=== PATIENT | male | born 1950 | race Caucasian/White ===

== ENCOUNTER 2020-02-19 12:14 | Outpatient (CLI) | payer MEDICARE, SELFPAY ==
--- NOTE | ~2020-02-19 | MR_ITS ---
EXAMINATION: MR lumbar spine wo [facility] EXAM DATE: 02/19/2020 13:14 INDICATION: Lumbar stenosis, back pain. TECHNIQUE: Multi-sequential, multiplanar MR images of the lumbar spine were obtained without contrast . Sagittal T1, T2, T2 fat saturation images. Axial T2 weighted images. Comparison is made to prior examination from 06/08/2017. FINDINGS: There is moderate thoracolumbar levoscoliosis. Mild loss of the L3 and L4 vertebral body he ights. There is moderate to severe disc disease L3-4, moderate at L2-3 and L4-5, mild to moderate at L1-2. L5-S1 has a rudimentary disc. There is no spondylolysis. There is 2-3 mm retrolisthesis L3 on L 4. The conus medullaris terminates at the T12 level and has normal signal intensity and morphology. There are no suspicious marrow signal abnormalities. Paraspinal soft tissue is unremarkable. Level by level evaluation: T12-L1: There is a mild diffuse disc bulge. Facet arthropathy: Mild. Neural foraminal stenosis: No stenosis. Central canal stenosis: No stenosis. L1-L2: There is a mild to moderate diffuse disc bulge. Facet arthropathy: Mild. Neural foraminal stenosis: Mild to moderate right, mild left. Central canal stenosis: Mild. L2-L3: There is a moderate diffuse disc bulge. Facet arthropathy: Mild to moderate. Neural foraminal stenosis: Moderate right, mild left. Central canal stenosis: Mild to moderate. L3-L4: There is a moderate diffuse disc bulge. Facet arthropathy: Mild to moderate bilateral. Neural foraminal stenosis: Moderate bilateral. Central canal stenosis: Mild to moderate. L4-L5: There is a mild to moderate diffuse disc bulge. Facet arthropathy: Mild to moderate left, mild right. Neural foraminal stenosis: Moderate to severe left, moderate right. Central canal stenosis: Mild. L5-S1: Rudimentary disc. Facet arthropathy: Mild. Neural foraminal stenosis: No stenosis. Central canal stenosis: No stenosis. Only mild interval progression compared to previous examination. IMPRESSION: 1. Moderate thoracolumbar levoscoliosis. 2. Advanced lumbar spondylosis with mild interval progression compared to 2017. Reviewed, dictated and finalized at location G. IMPRESSION: 1. Moderate thoracolumbar levoscoliosis. 2. Advanced lumbar spondylosis with mild interval progression compared to 2017 .
== END 2020-02-19 12:15 | disposition home or self-care (01) ==
LOC: ANHIMG 12:15
PROVIDERS: PCP Family Medicine; Visit Provider Physical Medicine & Rehabilitation Pain Medicine
DX: M48.061 Spinal stenosis, lumbar region without neurogenic claudication (principal); M41.85 Other forms of scoliosis, thoracolumbar region; M47.816 Spondylosis without myelopathy or radiculopathy, lumbar region
CPT/HCPCS: 72148

== ENCOUNTER 2021-02-07 12:18 | Outpatient (CLI) | payer MEDICARE, SELFPAY ==
--- NOTE | ~2021-02-07 | MR_ITS ---
EXAMINATION: MR shoulder RT wo con DATE: 02/07/2021 13:35 INDICATION: Right shoulder pain. TECHNIQUE: Magnetic resonance imaging (MRI) of the right shoulder was performed without intravenous c ontrast. Sequences included axial PD-weighted FS FSE, coronal oblique PD-weighted FS FSE, coronal obl ique T2-weighted FS FSE, sagittal PD-weighted FS FSE, and sagittal T1-weighted SE. COMPARISON: 06/08/2007 FINDINGS: Coracoacromial arch: The acromion undersurface is curved in morphology (type II). The coracoacromial ligament is normal. M oderate acromioclavicular osteoarthritis. Rotator cuff: Mild supraspinatus and infraspinatus tendinopathy with moderate tendinopathy of the intervening conjo ined portion of the tendons. Again seen is a full-thickness tear of the distal supraspinatus tendon w hich measures approximately 1 cm AP and 2 cm medial to lateral. Significantly larger articular sided supraspinatus tear defect which involves approximately half of the tendon thickness and the entire AP width of the tendon. The torn articular sided tear margin is retracted approximately 4 cm from the g reater tuberosity footplate. The articular sided portion of the tear includes a portion of the tendon extending into the conjoined portion of the tendon. Moderate subscapularis tendinopathy in mild kelley s minor tendinopathy without discrete tear. Unchanged mild fatty atrophy of the supraspinatus, infras pinatus and teres minor muscle bellies. Biceps tendon, glenoid labrum and glenohumeral cartilage: Complete avulsion of the intra-articular long head biceps tendon. The attenuated distally retracted t ear margin is seen at the intertubercular groove. There is extensive tearing of the glenoid labrum be ginning at the 12:00 position and extending around the posterior and inferior glenoid to the 5:00 pos ition anteroinferiorly. There is partial thickness cartilage loss with relatively smooth chondral zulma face at the cephalad third of the glenoid. There is thickening and fibrillation of the articular cart ilage at the inferior third of the glenoid. Additional partial thickness cartilage loss with chondral surface irregularity along the cephalad aspect of the humeral head. Fluid: Small to moderate-sized glenohumeral joint effusion which extends through the full-thickness rotator cuff tear into the subacromial/subdeltoid bursa. No loose osteochondral bodies. Bones: Minimal cephalad subluxation of the humeral head with respect to the glenoid with mild narrowing of t he subacromial space with 2-3 mm separation of the cartilage at the apex of the humeral head and the undersurface of the acromion. No fracture or pathologic marrow replacing process. IMPRESSION: 1. No significant change in a moderate-sized moderate severity articular sided tear involving the ent keny supraspinatus tendon and conjoined portion of the supraspinatus and infraspinatus tendons with sm aller full-thickness tear defect of the lateral supraspinatus tendon. 2. Mild glenohumeral osteoarthritis with extensive tearing of the superior, posterior and inferior gl enoid labrum. 3. Full-thickness avulsion and distal retraction of the intra-articular long head biceps tendon. 4. Moderate acromioclavicular osteoarthritis. 5. Likely reactive small to moderate-sized right glenohumeral joint effusion which extends into the s ubacromial/subdeltoid bursa through the full-thickness rotator cuff tear defect. Reviewed, dictated and finalized at location B. IMPRESSION: 1. No significant change in a moderate-sized moderate severity articular sided tear involving the entire supraspinatus tendon and conjoined portion of the sup raspinatus and infraspinatus tendons with smaller full-thickness tear defect of the lateral supraspinatus tendon.
== END 2021-02-07 12:19 | disposition home or self-care (01) ==
PROVIDERS: PCP Family Medicine; Visit Provider Physical Medicine & Rehabilitation Pain Medicine
DX: M19.011 Primary osteoarthritis, right shoulder (principal)
CPT/HCPCS: 73221

== ENCOUNTER 2021-04-29 15:39 | Outpatient (CLI) | payer MEDICARE, SELFPAY ==
--- NOTE | ~2021-04-29 | XR_ITS ---
EXAMINATION: XR cervical spine 4-5V DATE: 04/29/2021 16:02 INDICATION: Neck pain. TECHNIQUE: 4 views of cervical spine were obtained. COMPARISON: None. FINDINGS: There is 2 mm retrolisthesis of C5 on C6 and C6 on C7 and 2 mm anterolisthesis of C7 on T1. Vertebral body heights are normal. There is severely decreased disc height at C5-C6 and C6-C7. There is severe bilateral uncovertebral joint osteoarthritis at C5-C6 and C6-C7. There is multilevel mild facet joint osteoarthritis. There is mild central canal stenosis at C5-C6 and C6-C7. No prevertebral soft tissue swelling. IMPRESSION: 1. Severe cervical spondylosis. Reviewed, dictated and finalized at location A.
== END 2021-04-29 15:40 | disposition home or self-care (01) ==
LOC: ANHIMG 15:43
PROVIDERS: PCP Family Medicine; Visit Provider Physician Assistant
DX: M47.892 Other spondylosis, cervical region (principal)
CPT/HCPCS: 72050

== ENCOUNTER 2021-05-08 10:13 | Outpatient (CLI) | payer MEDICARE, SELFPAY ==
--- NOTE | ~2021-05-08 | MR_ITS ---
EXAMINATION: MR cervical spine wo con DATE: 05/08/2021 11:21 INDICATION: Cervical spondylosis. TECHNIQUE: Magnetic resonance imaging (MRI) of the cervical spine was performed without intravenous c ontrast. Sequences included sagittal T2-weighted FSE, sagittal STIR FSE, sagittal T1-weighted FSE, ax ial MERGE, and axial T2-weighted FSE. COMPARISON: Cervical spine radiographs 04/29/2021 FINDINGS: There is 2 mm retrolisthesis of C5 on C6 and C6 on C7. Vertebral body heights are normal. T here is severely decreased disc height at C5-C6 and C6-C7. The spinal cord signal intensity is normal . The following disc levels are specifically discussed: C2-C3: The disc does not extend beyond the endplate margin. There is no uncovertebral joint osteoarth ritis. There is severe right and mild left facet joint osteoarthritis. There is mild right neural for aminal stenosis. There is no central canal stenosis. C3-C4: There is a central protrusion. There is no uncovertebral joint osteoarthritis. There is severe bilateral facet joint osteoarthritis. There is mild right neural foraminal stenosis. There is mild c entral canal stenosis. C4-C5: There is a left central extrusion. There is no uncovertebral joint osteoarthritis. There is mi ld right and severe left facet joint osteoarthritis. There is mild left neural foraminal stenosis. Th ere is mild central canal stenosis with ventral indentation of the spinal cord. C5-C6: The disc is bulging. There is severe bilateral uncovertebral joint osteoarthritis. There is mi ld right and moderate left facet joint osteoarthritis. There is mild bilateral neural foraminal steno sis. There is mild central canal stenosis with ventral indentation of the spinal cord. C6-C7: The disc is bulging. There is severe bilateral uncovertebral joint osteoarthritis. There is mi ld left facet joint osteoarthritis. There is moderate right and mild left neural foraminal stenosis. There is mild central canal stenosis. C7-T1: There is a left central extrusion. There is no uncovertebral joint osteoarthritis. There is se eugene bilateral facet joint osteoarthritis. There is mild bilateral neural foraminal stenosis. There i s mild central canal stenosis. IMPRESSION: 1. Severe cervical spondylosis. Reviewed, dictated and finalized at location A.
== END 2021-05-08 10:14 | disposition home or self-care (01) ==
PROVIDERS: PCP Family Medicine; Visit Provider Family Medicine
DX: M47.892 Other spondylosis, cervical region (principal)
CPT/HCPCS: 72141

== ENCOUNTER 2022-02-05 13:09 | Outpatient (CLI) | payer MEDICARE, SELFPAY ==
--- NOTE | ~2022-02-05 | PE_ITS ---
EXAMINATION: PET skull to mid thigh DATE: 02/05/2022 15:54 INDICATION: Carcinoma of gallbladder TECHNIQUE: Blood glucose level was 223 mg/dL. 9.686 mCi of 18-fluorodeoxyglucose (18-FDG) was adminis tered i.v. Low dose computed tomography (CT) images were acquired from the base of the brain to the p roximal thighs for attenuation correction and anatomic localization. Positron emission tomography (PE T) images were acquired in the same distribution beginning 64 minutes after injection. Images includi ng fused PET/CT images were reconstructed in axial, coronal, and sagittal planes. Automated exposure control technique was employed. The dose-length product was 336.74mGy-cm. COMPARISON: CT abdomen and pelvis dated 06/08/2017 FINDINGS: Head/neck: There is asymmetric increased uptake at the left mandible centered in the region of the roots of the second premolar likely related to dental disease with suggestion of subtle periapical lucency on the CT images. There is otherwise symmetric increased activity in the oral cavity, laryngeal muscles and ocular muscles without CT correlate, likely physiologic. No pathologically enlarged cervical lymphade nopathy or suspicious foci of increased FDG uptake in the visualized head or neck. Chest: Mild emphysema. Interval increase in size of a now 3.2 x 2.9 cm relatively low density nodule at the posterior right lower lobe which previously measured 2.5 x 1.8 cm which is without significant FDG up take with maximal SUV of 1.3 which is less than the activity in the blood pool. 2.5 x 1.7 cm sub brooke d nodule in the more posterior right lower lobe which is without discernible FDG activity. 7 x 5 mm p leural-based nodule more inferiorly at the posterior sulcus of the right lower lobe also without disc ernible FDG uptake. No pulmonary edema or pleural effusion. Heart size is normal. Atherosclerotic cor onary artery calcification. No pericardial effusion. No pathologically enlarged or FDG avid thoracic lymphadenopathy. Abdomen/pelvis/proximal thighs: Physiologic renal accumulation and excretion of FDG activity in the kidneys, bladder and along portio ns of ureters. Normal degree and heterogenous pattern of increased uptake throughout the liver withou t radiologic correlate or dominant FDG avid lesion. Surgical clips and small amount of gas and fluid at the gallbladder fossa likely representing postoperative change related to reported recent cholecys tectomy. The gallbladder, pancreas, spleen and bilateral adrenal glands are normal. Mild to moderate uptake scattered throughout the bowels without radiologic correlate, also likely physiologic. Normal appendix. No other abnormal foci of increased FDG uptake or pathologically enlarged lymphadenopathy i n the abdomen, pelvis or proximal thighs. Musculoskeletal: There is increased FDG uptake extending along the left teres minor and infraspinatus tendons without radiologic correlate which is likely physiologic. Mild lumbar levoscoliosis with severe spondylosis. Mild thoracic and moderate lower cervical spondylosis. 2.9 x 1.5 x 1.1 cm sclerotic lesion in the sub trochanteric left femur with ring and arc-like configuration of the sclerosis consistent with chondro id matrix in the setting of an enchondroma. There is no abnormal associated FDG uptake. No other susp icious lytic, blastic or FDG avid bone lesions. IMPRESSION: 1. Interval increase in size of a now 2.2 x 2.9 cm right lower lobe nodule with relatively low densit y and lobular margins which is been present since at least 2011. The chronicity, appearance and absen ce of significant FDG activity suggestive benign etiology such as a hamartoma. Correlate with patholo gy from prior biopsy performed 06/14/2017. 2. New 2.5 x 1.7 cm subtle solid nodule in the right lower lobe without FDG uptake. While reassuring slowly growing bronchoalveolar carcinoma could have a similar appearance and
[2022-02-05 14:14] LABS: Glucose Point of Care 223 mg/dl (65-105)
== END 2022-02-05 13:10 | disposition home or self-care (01) ==
LOC: ANHIMG 13:11
PROVIDERS: PCP Family Medicine; Visit Provider Internal Medicine Hematology & Oncology
DX: C24.9 Malignant neoplasm of biliary tract, unspecified (principal); C23 Malignant neoplasm of gallbladder; J43.9 Emphysema, unspecified
CPT/HCPCS: 78815; A9552

== ENCOUNTER 2022-02-06 14:59 | Outpatient (CLI) | payer MEDICARE, SELFPAY ==
--- NOTE | ~2022-02-06 | MR_ITS ---
EXAMINATION: MR MRCP wo/w con/w 3D wo ind DATE: 02/06/2022 17:14 INDICATION: Adenocarcinoma of the gallbladder TECHNIQUE: Magnetic resonance imaging (MRI) of the abdomen was performed without and with 14 mL Multi wilman intravenous contrast. Sequences included coronal T2-weighted SS-FSE, coronal T2-weighted FS SS- FSE, coronal T2-weighted FS FIESTA, axial T2-weighted FS FIESTA, axial T2-weighted FIESTA, sagittal T 2-weighted SS-FSE, axial T1-weighted dual-echo FSPGR, axial T2-weighted SS-FSE, axial T1-weighted LAV A, axial T2-weighted STIR FSE. Thick-slab T2-weighted FRFSE-XL images were obtained for magnetic reso nance cholangiopancreatography (MRCP). Rotating maximum intensity projection 3-D reconstructions of t he volumetric data were created by the technologist. Postcontrast sequences included a time course of axial T1-weighted LAVA. COMPARISON: PET/CT dated 02/05/2022 FINDINGS: ABDOMEN MRI: Heart size is normal. No pericardial or pleural effusion. 3.2 x 2.9 cm T2 hyperintense n odule without definitive enhancement along the biceps the right hepatic lobe. Air bronchograms extend through an additional 2.5 x 1.5 cm T2 hyperintense nodule in the more posterior right lower lobe als o without discernible enhancement. Metallic magnetic field artifact associated with cholecystectomy c lips the gallbladder fossa where there is heterogeneous increased T1 signal without evident enhanceme nt consistent with either blood or proteinaceous fluid likely residual postoperative change related t o recent cholecystectomy. Liver, spleen and bilateral adrenal glands are normal. There are multiple b ilateral nonenhancing renal cysts, the majority simple with T2 hyperintensity and one at the upper po le of the right kidney measuring 6 mm with increased T1 and decreased T2 signal consistent with a pro teinaceous/hemorrhagic cyst. There is dilation of the main pancreatic duct at the tail of the pancrea s along with several cystic lesions which appear to indicate with the main pancreatic duct, the large st measuring 4.0 x 2.5 cm and a smaller measuring 2.0 x 1.5 cm. No evident enhancing solid soft tissu e component. Tiny punctate dystrophic calcifications are seen at the tail of the pancreas on earlier CT of the abdomen and pelvis dated 09/06/2012 further suggesting the ductal dilation and cystic lesion s represent sequela of chronic pancreatitis with pseudocyst formation. Visualized portion of the vielka ls are unremarkable. No pathologically enlarged abdominal lymphadenopathy. Mild lumbar levoscoliosis with severe spondylosis. ABDOMEN MRCP: No intrahepatic biliary ductal dilation. The common hepatic duct measures up to 5 mm diameter taperin g to 2-3 mm in the common hepatic duct. The main pancreatic duct is normal in caliber at the head of the pancreas with dilation of the body and tail as previously detailed. IMPRESSION: 1. Small amount of nonenhancing T1 hyperintense material at the gallbladder fossa likely small amount of hemorrhage/clot related to recent cholecystectomy. 2. 3.2 cm and 2.5 cm right lower lobe nodules without discernible enhancement and without increased F DG uptake on prior PET study. The former nodule is biopsied on 06/14/2017 and would correlate with kristy erickson from this biopsy. As noted on PET CT report would recommend 3 month follow-up of the smaller n ew more posterior right lower lobe nodule. 3. Ductal dilation of the main pancreatic duct at the body and tail the pancreas with a few simple ap pearing cystic lesions without enhancing soft tissue components most likely pancreatic pseudocysts re lated to chronic pancreatitis. Correlate for prior pancreatitis. Reviewed, dictated and finalized at location B.
[2022-02-06 16:15] LABS: Estimated Glomerular Filt Rate 55
== END 2022-02-06 15:00 | disposition home or self-care (01) ==
PROVIDERS: PCP Family Medicine
DX: C23 Malignant neoplasm of gallbladder (principal)
CPT/HCPCS: 74183; 76376; A9577

== ENCOUNTER 2022-04-30 09:40 | Emergency (ER) | payer MEDICARE, SELFPAY ==
[2022-04-30] VITALS (12 sets, daily range): BP systolic 144–187; BP diastolic 79–99; PULSE 61–75; RESP 13–20; TEMP 36.7; O2SAT 90–100
--- NOTE | ~2022-04-30 | CT_ITS ---
EXAMINATION: CT abdomen pelvis w con DATE: 04/30/2022 11:35 INDICATION: Generalized abdominal pain, greatest in the epigastric area. TECHNIQUE: Computed tomography (CT) of the abdomen and pelvis was performed with 100 CC Omnipaque 300 intravenous contrast. Automated exposure control and iterative reconstruction technique were employe d. Exam dose: 361.74 mGy-cm total exam DLP. COMPARISON: 02/06/2022 MR/MRCP 02/05/2022 PET/CT scan 09/06/2012 CT abdomen pelvis FINDINGS: An up to 3.3 cm anterolateral right basilar low-attenuation mass with some peripheral calci fications. Irregular approximately 3 cm posterolateral right lower lobe mass. There is an adjacent 12 mm irregul ar soft tissue mass at the posterolateral right lung base abutting the diaphragm pleura. Approximatel y 6 mm peripheral pleural-based nodule (series 4 image 2). Irregular approximately 3.5 x 7.5 mm opacity at the posterior left lung base (series 4 image 24).. Normal heart size. No pericardial or pleural effusion. Small sliding hiatal hernia. Mild ascites. Surgical clips in the gallbladder fossa. There is mild fluid accumulation in the gallbladder fossa, p ossibly postoperative hematoma or seroma or bile collection. At least several pancreatic cystic areas are noted, largest measuring up to approximately 17.8 x 36.1 mm, previously attributed to probable pancreatic pseudocysts on 02/06/2022 MR examination. No adrenal mass lesion. 5 mm calcification at the upper pole of the left kidney mid left renal approximately 3.8 mm calcifica tion. Some renal artery calcifications are noted bilaterally. No ureteral calculus or hydroureteronep hrosis or significant abnormality of the urinary bladder is noted. There is extensive calcification of the abdominal aorta, prominent calcification at the origins of th e celiac and superior mesenteric and renal arteries and prominent calcification of the iliac and femo ral arteries. No abdominal aortic aneurysm. No intraperitoneal or retroperitoneal or pelvic mass lesi on or adenopathy or ascites is noted. Degenerative changes of the thoracic and lumbar spine including particular severe degenerative disc d isease at L3-4 and moderately severe degenerative disc disease at L1-2, L2-3 and L4-5, moderate degen erative disease at L5-S1. No suspicious osteolytic or osteoblastic lesions. There is very prominent distention of the stomach with fluid and foodstuff and some opaque opacities, possibly antacid tablets or medication. There is fluid containing nondilated small bowel. Mild colonic diverticulosis. There is a prominent amount of fecal material throughout most of the col on. No bowel obstruction, bowel wall thickening, pneumatosis or intraperitoneal free air is detected. Levoscoliosis of the lumbar spine. There is degenerative change of the lower thoracic spine in partic ular the lumbar spine including abdominal degenerative disc disease, most severe at L3-4, also quite prominent at L1-2, L2-3 and L4-5. No suspicious osteolytic or osteoblastic lesions are noted. IMPRESSION: Interval enlargement of posterior lateral right lower lobe mass since 02/05/2022. CT-guide d percutaneous needle biopsy should be considered Stable hypoattenuating 3 cm anterolateral right lower lobe mass with calcifications Small sliding hiatal hernia Mild ascites Status post cholecystectomy, with possible mild gallbladder fossa hematoma, seroma or bile collection Very prominent gastric distention Reviewed, dictated and finalized at [facility]. Reviewed, dictated and finalized at [facility]. IMPRESSION: Interval enlargement of posterior lateral right lower lobe mass si nce 02/05/2022. CT-guided percutaneous needle biopsy should be considered Stable hypoattenuating 3 cm
[2022-04-30 09:49] LABS: Glucose Point of Care 232 mg/dl (65-105)
--- NOTE | 2022-04-30 10:24 | ECG_ITS ---
Measurements Intervals [place] Rate: 60 P: 74 ND: 177 QRS: -18 QRSD: 81 T: 3 QT: 418 QTc: 420 Interpretive Statements SINUS RHYTHM LOW VOLTAGE EKG NO PREVIOUS ECG AVAILABLE FOR COMPARISON Electronically Signed On 04-30-2022 18:04:31 CDT by Estephanie Garg M.D.
[2022-04-30 10:42] LABS: Add Urine Microscopic? YES; Appearance Urine Clear (Clear); Bilirubin Urine Negative (Negative); Blood Urine Negative (Negative); Color Urine Yellow (Yellow); Glucose Urine UA 3+ mg/dL (Negative); Ketones Urine Negative (Negative); Leukocyte Esterase Ur Negative LEU/UL (Negative); Nitrate Urine Negative (Negative); Protein Urine 2+ mg/dL (Negative); Urobilinogen Urine 0.2 mg/dL (<2.0); pH Urine 8.5 (5.0-9.0)
[2022-04-30 10:44] LABS: Bacteria Urine Trace /hpf; Mucus Urine Rare /lpf; RBC Urine 0-2 /hpf (0-2); Squamous Epithelial Cell Urine Rare /hpf (Few); WBC Urine 0-3 /hpf
[2022-04-30] MEDS: LACTATED RINGERS 1,000 ML 999 ML IV CONT (10:48)
[2022-04-30] MEDS: MAG HYDROX/AL HYDROX/SIMETH 30 ML UDC PO (10:50)
[2022-04-30] MEDS: LIDOCAINE HCL 2% VISC SOLN 15 ML UDC 20 ML PO (10:50)
[2022-04-30 10:52] LABS: Basophils Absolute Auto 0.1 K/mm3 (0.0-0.1); Basophils Percent Auto 0.7 % (0.2-1.2); Eosinophils Absolute Auto 0.1 K/mm3 (0-0.3); Eosinophils Percent Auto 0.9 % (0-4.4); Hematocrit 28.5 % (42.0-52.0); Hemoglobin 9.4 g/dL (14.0-18.0); Immature Granulocyte Absolute 0.07 K/mm3 (0.00-0.031); Immature Granulocyte Percent A 0.8 % (0-0.5); Lymphocytes Absolute Auto 2.17 K/mm3 (0.9-3.2); Lymphocytes Percent Auto 23.7 % (18.3-44.2); Mean Corpuscular Hemoglobin 30.2 pg (26-34); Mean Corpuscular Volume 91.6 fl (80-100); Mean Platelet Volume 8.8 fl (7.4-10.4); Monocytes Percent Auto 11.4 % (2.6-8.5); Neutrophils Absolute Auto 5.7 K/mm3 (1.3-6.7); Neutrophils Percent Auto 62.5 % (45.5-73.1); Platelet Count Result 395 k/mm3 (150-375); Red Blood Count 3.11 M/mm3 (4.6-6.20); Red Cell Distribution Width 15.9 % (11.5-14.5); White Blood Count 9.1 K/mm3 (4.5-10.0)
[2022-04-30 11:06] LABS: Alanine Aminotransferase 22 U/L (6-50); Albumin Level 3.7 g/dL (3.5-5.1); Alkaline Phosphatase 62 U/L (38-126); Anion Gap 7 mmol/L (8-16); Aspartate Amino Transferase 23 U/L (17-59); Bilirubin,Total 0.1 mg/dL (0.2-1.3); Blood Urea Nitrogen 30 mg/dL (9-20); Calcium 8.3 mg/dL (8.4-10.2); Carbon Dioxide 23 mmol/L (22-30); Chloride 101 mmol/L (98-107); Estimated CRCL calculation 44 ml/min; Estimated Glomerular Filt Rate 50; Glucose 281 mg/dL (65-110); Potassium 4.8 mmol/L (3.4-5.0); Sodium 131 mmol/L (137-145)
--- NOTE | 2022-04-30 11:12 | PC.NURSE ---
patient report given to GAUDENCIO Sadler. All questions answered and care of patient transferred.
[2022-04-30 11:20] LABS: Lipase < 10 U/L (23-300); Troponin I < 0.012 ng/mL (0.000-0.034)
--- NOTE | 2022-04-30 12:55 | ED.GENADULT ---
HPI - General Adult General Chief complaint: Unspecified Stated complaint: lots of complaints Time Seen by Provider: 04/30/22 10:18 Source: patient History of Present Illness HPI narrative: Patient presents with multiple complaints. 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 He is coming in today with multiple complaints of generally not feeling well reflux low blood sugar and weakness. Patient reports diffuse abdominal pain primarily in his epigastric area that radiates up into his chest. He is attempted arwv-isc-rpmenld medications without relief of his symptoms so he came to the ER for further evaluation. This pain is achy, constant, no clear aggravating or alleviating factors. Denies any shortness of breath fevers, cough, congestion. Related Data Home Medications Medication Instructions Recorded Confirmed atenolol 50 mg tablet 50 mg PO DAILY 08/20/20 04/09/22 cholecalciferol (vitamin D3) 125 125 mcg PO DAILY 08/20/20 04/09/22 mcg (5,000 unit) tablet (Vitamin D3) ondansetron 4 mg disintegrating 4 mg PO Q6H 08/20/20 04/08/22 tablet atorvastatin 10 mg tablet 10 mg PO DAILY 02/17/21 04/09/22 insulin aspart U-100 100 unit/mL 10 unit subcut TID 02/17/21 04/09/22 (3 mL) subcutaneous pen (Novolog Flexpen U-100 Insulin aspart) insulin degludec 100 unit/mL (3 10 unit subcut DAILY 02/17/21 04/09/22 mL) subcutaneous pen (Tresiba FlexTouch U-100 insulin) alprazolam 0.5 mg tablet 0.5 mg PO HS PRN Anxiety 04/09/22 04/09/22 lisinopril 20 mg tablet 20 mg PO DAILY 04/09/22 04/09/22 ondansetron 4 mg disintegrating 4 mg PO Q8H PRN nausea 04/09/22 04/09/22 tablet chlorpromazine 25 mg tablet 50 mg PO TID 04/16/22 04/16/22 Allergies Allergy/AdvReac Type Severity Reaction Status Date / Time No Known Allergies Allergy Unknown N/A Verified 04/09/22 08:34 Review of Systems Review of Systems: CONSTITUTIONAL: Denies fever, chills, or sweats. EYES: Denies visual changes, redness, or discharge. ENT: Denies rhinorrhea, congestion, sore throat, or otalgia. CARDIOVASCULAR: Denies chest pain, palpitations, or edema. RESPIRATORY: Denies cough or dyspnea. GASTROINTESTINAL: Abdominal pain GENITOURINARY: Denies dysuria or hematuria. SKIN: Denies rash or itching. MUSCULOSKELETAL: Denies back pain, joint pain, or myalgia. NEUROLOGIC: Denies headache, numbness, dizziness, or weakness. PSYCHIATRIC: Denies anxiety or depression. All systems reviewed & are unremarkable except as noted in HPI and below PMFSH Past Medical History Medical History Complete tear of right rotator cuff Diabetes History of prostate cancer History of testicular cancer Hypertension Spinal cord stimulator status (~08/2015) Surgical History Surgical History History of prostatectomy (~10/2012) History of surgical removal of testicle (~01/1981) Family History Family History Sibling Diabetes mellitus Father Family history of malignant neoplasm Social History Social History Smoking status: Former smoker Smoking end date: 08/20/20 Alcohol intake: current Gender identity (if verbalized by the patient): Male Exam Narrative: GENERAL: Well-appearing, well-nourished, and in no acute distress. HEAD: Normocephalic, atraumatic. EYES: PERRLA and EOMI. ENT: Nares clear, no rhinorrhea or epistaxis. Mucous membranes moist. NECK: Supple. No masses. No JVD CHEST: Clear to auscultation. No respiratory distress. No wheezes rales or rhonchi HEART: Regular rate and rhythm. No murmur heard. Normal peripheral pulses. ABDOMEN: Mild diffuse abdominal pain mostly in the epigastric area no rebound or guarding soft, nondistended EXTREMITIES: Normal range of motion. No edema. SKIN: Warm, dry, no rash. NEURO: No foc
[2022-04-30] MEDS: HEPARIN SODIUM LOCK FLUSH 500 UNITS/5 ML VIAL IV PUSH (13:43)
== END 2022-04-30 13:54 | disposition home or self-care (01) ==
PROVIDERS: Emergency Provider Emergency Medicine; PCP Family Medicine
DX: R10.84 Generalized abdominal pain (principal); C23 Malignant neoplasm of gallbladder; C79.9 Secondary malignant neoplasm of unspecified site; E11.9 Type 2 diabetes mellitus without complications; I10 Essential (primary) hypertension; Z96.82 Presence of neurostimulator; Z79.4 Long term (current) use of insulin; Z90.79 Acquired absence of other genital organ(s); Z87.891 Personal history of nicotine dependence; K44.9 Diaphragmatic hernia without obstruction or gangrene; R18.8 Other ascites; R91.8 Other nonspecific abnormal finding of lung field; Z85.46 Personal history of malignant neoplasm of prostate; Z85.47 Personal history of malignant neoplasm of testis
CPT/HCPCS: 36415; 74177; 80047; 80053; 81001; 82948; 83690; 83735; 84484; 85025; 93005; 96361; 96372; 96374; 99284; A9270; J1642; J7120; Q5106; Q9967

== ENCOUNTER 2022-05-14 09:03 | Outpatient (CLI) | payer MEDICARE, SELFPAY ==
[2022-05-14 15:28] LABS: Phosphorus 3.2 mg/dL (2.5-4.5)
[2022-05-14 15:40] LABS: Parathyroid Intact 56.6 pg/mL (7.5-53.5)
[2022-05-14 15:43] LABS: Vitamin D 25 Hydroxy 54.9 ng/mL
== END 2022-05-14 09:04 | disposition home or self-care (01) ==
LOC: ANHLAB 09:05
PROVIDERS: Internal Medicine Nephrology; PCP Family Medicine; Visit Provider Family Medicine
DX: I12.9 Hypertensive chronic kidney disease with stage 1 through stage 4 chronic kidney disease, or unspecified chronic kidney disease (principal); N18.32 Chronic kidney disease, stage 3b; E11.29 Type 2 diabetes mellitus with other diabetic kidney complication
CPT/HCPCS: 36415; 82306; 83970; 84100

== ENCOUNTER 2022-06-03 07:02 | Outpatient (RCR) | payer MEDICARE, SELFPAY ==
[2022-06-03] VITALS (9 sets, daily range): BP systolic 110–153; BP diastolic 66–83; PULSE 49–59; RESP 16; TEMP 36.5–37.1; O2SAT 98–99
[2022-06-03] MEDS: diphenhydrAMINE HCl CAP 25 MG CAPSULE PO (09:05)
[2022-06-03] MEDS: ACETAMINOPHEN 325 MG TABLET 650 MG PO (09:05)
[2022-06-03] MEDS: SODIUM CHLORIDE 0.9% IV 250 ML 30 ML IV CONT (09:05)
[2022-06-03] MEDS: FUROSEMIDE INJ 40 MG/4 ML VIAL 20 MG IV PUSH (11:58)
[2022-06-03] MEDS: HEPARIN SODIUM LOCK FLUSH 500 UNITS/5 ML VIAL (14:45)
== END 2022-09-01 23:59 | disposition home or self-care (01) ==
LOC: ANHCPCTRAN 07:02
PROVIDERS: PCP Family Medicine; Visit Provider Internal Medicine Hematology & Oncology
DX: C23 Malignant neoplasm of gallbladder (principal); N18.32 Chronic kidney disease, stage 3b; D63.1 Anemia in chronic kidney disease
CPT/HCPCS: 36415; 36430; 86850; 86900; 86901; 86920; 96374; A9270; J1642; J1940; J7050; P9016

== ENCOUNTER 2022-06-20 11:54 | Outpatient (CLI) | payer MEDICARE, SELFPAY ==
[2022-06-20 12:25] LABS: Hematocrit 34.3 % (42.0-52.0); Hemoglobin 11.3 g/dL (14.0-18.0); Mean Corpuscular HGB Conc 32.9 g/dl (32-36); Mean Corpuscular Volume 87.9 fl (80-100); Platelet Count Result 287 k/mm3 (150-375); Red Cell Distribution Width 16.4 % (11.5-14.5); White Blood Count 12.3 K/mm3 (4.5-10.0)
[2022-06-20 12:38] LABS: Anion Gap 11 mmol/L (8-16); Blood Urea Nitrogen 22 mg/dL (9-20); Calcium 8.2 mg/dL (8.4-10.2); Carbon Dioxide 21 mmol/L (22-30); Chloride 97 mmol/L (98-107); Estimated Glomerular Filt Rate 60; Glucose 82 mg/dL (65-110); Potassium 4.1 mmol/L (3.4-5.0); Sodium 129 mmol/L (137-145)
== END 2022-06-20 11:55 | disposition home or self-care (01) ==
LOC: ANHLAB 11:59
PROVIDERS: PCP Family Medicine; Visit Provider Family Medicine
DX: D64.9 Anemia, unspecified (principal); J18.9 Pneumonia, unspecified organism; E87.1 Hypo-osmolality and hyponatremia
CPT/HCPCS: 36415; 80048; 85027